=== PATIENT | female | born 1980 | race African-American/Black ===

== ENCOUNTER 2019-05-04 17:40 | Emergency (ER) | payer BC, OTHER ==
[~2019-05-04] VITALS: Ht 170.2 cm; Wt 83.9 kg
[2019-05-04 17:40] VITALS: BP 138/93
[~2019-05-04 17:40] MED LIST: BENADRYL25 MG PO; IRON236 MG PO; MACROBID 100 M100 M1 PO; PRENATAL PO
== END 2019-05-04 18:45 | disposition home or self-care (01) ==
LOC: ER 17:40
DX: S61.511A Laceration without foreign body of right wrist, initial encounter (principal); Z91.040 Latex allergy status; W25.XXXA Contact with sharp glass, initial encounter; Y93.89 Activity, other specified; Y92.89 Other specified places as the place of occurrence of the external cause; Y99.8 Other external cause status